=== PATIENT | female | born 1990 | race American Indian/Alaskan Native ===

== ENCOUNTER 2017-08-16 12:14 | Emergency (ER) | payer OTHER ==
[2017-08-16 12:48] VITALS: BP 117/64
[2017-08-16] MEDS ORDERED: NORCO 5/325 PO ONE (13:30)
[2017-08-16] MEDS ORDERED: MOTRIN PO ONE (13:30)
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
== END 2017-08-16 13:52 | disposition home or self-care (01) ==
LOC: ED 12:14
DX: M54.2 Cervicalgia (principal); V89.2XXA Person injured in unspecified motor-vehicle accident, traffic, initial encounter; Y93.89 Activity, other specified; Y92.89 Other specified places as the place of occurrence of the external cause; Y99.8 Other external cause status
CPT/HCPCS: 99282

== ENCOUNTER 2017-09-18 15:03 | Emergency (ER) | payer OTHER ==
[2017-09-18 15:32] VITALS: BP 132/63
== END 2017-09-18 19:00 | disposition left against medical advice (07) ==
LOC: ED 15:03
DX: M54.5 Low back pain (principal); Z53.21 Procedure and treatment not carried out due to patient leaving prior to being seen by health care provider

== ENCOUNTER 2020-11-20 16:14 | Emergency (ER) | payer SELFPAY ==
--- NOTE | 2020-11-20 17:16 | Emergency Department Report ---
- General Stated Complaint: LT FOOT INJURY Time Seen by Provider: 11/20/20 17:11 Source: patient - History of Present Illness Initial Comments: The patient was evaluated in the emergency department for symptoms described in the history of present illness. He/she was evaluated in the context of the global COVID-19 pandemic, which necessitated consideration that the patient might be at risk for infection with the virus that causes COVID-19. Institutional protocols and algorithms that pertain to the evaluation of patients at risk for COVID-19 are in a state of rapid change based on information released by regulatory bodies including the CDC and federal and state organizations. These policies and algorithms were followed during the patient's care in the emergency department. Please note that these policies, procedures and recommendations changed on a rapid basis. 30-year-old -[place] female presents to the emergency room complaining of left great toe sore on the bottom of it x3 days. Patient states that [place] evidently stepped on something she said in started having a sore under her left great toe with pain. Patient is taking nothing from it. Patient reports her pain is a 9 out of 10. She states is hard to bear weight on her foot secondary to the sore. She does admit to having a headache. She has not been Covid tested. She has recently traveled from [place]. Onset/Timin -: days(s) Extremity Location: Left: Foot (Great toe) Place: other ([place] the beach) Context: sharp object use Associated Symptoms: pain Treatments Prior to Arrival: other (Nothing) - Related Data Home Medications Medication Instructions Recorded Confirmed Last Taken Famotidine/Ca Carb/Mag Hydrox 01/06/13 02/05/13 01/06/13 09:00 [Pepcid Complete Tablet Chew] Ondansetron [Zofran] 4 mg PO Q6HR PRN 01/06/13 02/05/13 01/06/13 09:00 Previous Rx's Medication Instructions Recorded Last Taken Type Fluconazole [Diflucan] 150 mg PO ONCE #1 tablet 11/10/12 Unknown Rx Docusate Sodium [Colace] 100 mg PO BID #60 capsule 02/04/13 Unknown Rx Ferrous Sulfate [Feosol 325 MG tab] 325 mg PO BID #60 tablet 02/04/13 Unknown Rx Vit/Iron Fum/Folic AC 1 each PO QDAY #30 tablet 02/04/13 Unknown Rx [ Vitamin Tablet] HYDROcodone/APAP 5-325 [[place] 1 each PO Q6HR PRN #10 tablet 06/13/13 Unknown Rx 5-325 mg TAB] Ondansetron [Zofran Odt] 4 mg PO Q6H PRN #8 tab.rapdis 06/13/13 Unknown Rx Cyclobenzaprine [Flexeril] 10 mg PO TID PRN #20 tablet 08/16/17 Unknown Rx HYDROcodone/APAP 5-325 [[place] 1 each PO Q6HR PRN #10 tablet 08/16/17 Unknown Rx 5/325] Ibuprofen [Ibuprofen 800] 400 mg PO QID 5 Days #20 tablet 08/16/17 Unknown Rx Naproxen 500 mg PO BID PRN #20 tablet 11/20/20 Unknown Rx cephALEXin [Keflex] 500 mg PO Q12HR 7 Days #14 cap 11/20/20 Unknown Rx Allergies Allergy/AdvReac Type Severity Reaction Status Date / Time No Known Allergies Allergy Verified 01/06/13 13:02 ED Review of Systems ROS: Stated complaint: LT FOOT INJURY Other details as noted in HPI ED Past Medical Hx - Surgical History Hx Cholecystectomy: Yes Additional Surgical History: C-sect, tummy tuck - Social History Smoking Status: Never Smoker Substance Use Type: None - Medications Home Medications: Home Medications Medication Instructions Recorded Confirmed Last Taken Type Fluconazole [Diflucan] 150 mg PO ONCE #1 tablet 11/10/12 02/05/13 Unknown Rx Famotidine/Ca Carb/Mag Hydrox 01/06/13 02/05/13 01/06/13 09:00 History [Pepcid Complete Tablet Chew] Ondansetron [Zofran] 4 mg PO Q6HR PRN 01/06/13 02/05/13 01/06/13 09:00 History Docusate Sodium [Colace] 100 mg PO BID #60 capsule 02/04/13 Unknown Rx Ferrous Sulfate [Feosol 325 MG tab] 325 mg PO BID #60 tablet 02/04/13 Unknown Rx Vit/Iron Fum/Folic AC 1 each PO QDAY #30 tablet 02/04/13 Unknown Rx [ Vitamin Tablet] HYDROcodone/APAP 5-325 [[place] 1 each PO Q6HR PRN #10 tablet 06/13/13 Unknown Rx 5-325 mg TAB] Ondansetron [Zofran Odt] 4 mg PO Q6H PRN #8 tab.rapdis 06/13/13 Unknown Rx Cyclobenzaprine [Flexeril] 10 mg PO TID PRN #20 tablet 08/16/17 Unknown Rx HYDROcodone/APAP 5-325 [[place] 1 each PO Q6HR PRN #10 tablet 08/16/17 Unknown Rx 5/325] Ibuprofen [Ibuprofen 800] 400 mg PO QID 5 Days #20 tablet 08/16/17 Unknown Rx Naproxen 500 mg PO BID PRN #20 tablet 11/20/20 Unknown Rx cephALEXin [Keflex] 500 mg PO Q12HR 7 Days #14 cap 11/20/20 Unknown Rx Critical care attestation.: If time is entered above; I have spent that time in minutes in the direct care of this critically ill patient, excluding procedure time. ED Disposition Clinical Impression: Open wound of left great toe, Cellulitis of toe of left foot Disposition: HOME / SELF CARE / HOMELESS Is pt being admited?: No Does the pt Need Aspirin: No Condition: Stable Instructions: Wound Care, Adult, Cellulitis, Adult, [id number] Additional Instructions: Complete antibiotics as prescribed. Pain medication as needed. Keep wound clean and dry with a bandage on it. Follow-up with your primary care provider. Prescriptions: cephALEXin [Keflex] 500 mg PO Q12HR 7 Days #14 cap Naproxen 500 mg PO BID PRN #20 tablet PRN Reason: Pain , Severe (7-10) Referrals: [facility] [Provider Group] - 3-5 Days Forms: Work/School Release Form(ED) Time of Disposition: 17:19
[2020-11-20] MEDS ORDERED: TETANUS,DIPH,PERTUSS(ACELL) VACCINE 0.5 ML SYRINGE IM ONE (17:18)
[2020-11-20 17:23] VITALS: BP 124/72
== END 2020-11-20 18:14 | disposition home or self-care (01) ==
LOC: ED 16:14
DX: L03.032 Cellulitis of left toe (principal); Z90.49 Acquired absence of other specified parts of digestive tract; Z98.890 Other specified postprocedural states; Z79.899 Other long term (current) drug therapy
CPT/HCPCS: 90471; 90715; 99282